=== PATIENT | male | born 1950 | race Caucasian/White ===

== ENCOUNTER 2016-09-30 12:13 | Emergency (ER) | payer OTHER, MEDICAID ==
[~2016-09-30] VITALS: Ht 172.7 cm; Wt 45.4 kg
--- NOTE | 2016-09-30 12:13 | NUR ---
Patient was BIBA and taken to bed 06 via gurney per EMS.
[2016-09-30 12:15] VITALS: BP 106/70
--- NOTE | 2016-09-30 12:31 | NUR ---
Dr. Paz evluating patient at bedside.
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
--- NOTE | 2016-09-30 12:35 | NUR ---
Patient being evaluated by Dr. Paz at bedside.
[2016-09-30] MEDS ORDERED: KETOROLAC 60 MG/2 ML VIAL IM ONE (12:40)
[2016-09-30] MEDS ORDERED: PRED20TA5 PO (12:41)
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
[2016-09-30 13:38] VITALS: BP 107/70
--- NOTE | 2016-09-30 13:39 | NUR ---
Patient discharged with v/s stable. Written and verbal after care instructions given and explained. Patient alert, oriented and verbalized understanding of instructions. Ambulatory with steady gait. All questions addressed prior to discharge. ID band removed. Patient advised to follow up with PMD. Rx of PREDNISONE AND MOTRIN given. Patient educated on indication of medication including possible reaction and side effects. Opportunity to ask questions provided and answered.
== END 2016-09-30 13:39 | disposition home or self-care (01) ==
LOC: MED 12:13
DX: M54.2 Cervicalgia (principal); R06.02 Shortness of breath; J44.9 Chronic obstructive pulmonary disease, unspecified; F17.200 Nicotine dependence, unspecified, uncomplicated; V43.62XA Car passenger injured in collision with other type car in traffic accident, initial encounter; Y93.I9 Activity, other involving external motion; Y92.488 Other paved roadways as the place of occurrence of the external cause; Y99.8 Other external cause status; Z98.61 Coronary angioplasty status
CPT/HCPCS: 96372; 99283; J1885

== ENCOUNTER 2017-05-14 13:28 | Emergency (ER) | payer OTHER, MEDICAID ==
[~2017-05-14] VITALS: Ht 172.7 cm; Wt 41.7 kg
[~2017-05-14 13:28] MED LIST: PRED20TA5 PO
[2017-05-14 13:45] VITALS: BP 101/75
[2017-05-14] MEDS ORDERED: IPRATROPIUM 0.02% 0.5 MG/2.5 ML NEBU INH ONE (13:45)
[2017-05-14] MEDS ORDERED: ALBUTEROL 0.083% 2.5 MG/3 ML NEBU INH ONE ×2 (13:45→14:20)
[2017-05-14] MEDS ORDERED: ALBU0.0912 IH (13:52)
--- NOTE | 2017-05-14 14:00 | NUR ---
PATIENT BIB EMR PRESENTS TO ED WITH C/O SOB/GEN BODY ACHE X 1 WK; HX: HTN,COPD,ASTHMA,OR. TAKING PREDNISONE,ALBUTEROL INHALER LUNG SOUNDS DR.ELLIOTT RITA MADE AWARE,ORDERED RESP. TX. AND CALLED IN. DENIES N/V/D; SKIN IS PINK/WARM/DRY; AAOX4; LUNGS RHONCHI BL; HR EVEN AND REGULAR; PT DENIES ANY FEVER, OR COUGH AT THIS TIME; PATIENT STATES PAIN OF 6/10 AT THIS TIME; VSS; PATIENT POSITIONED FOR COMFORT; HOB ELEVATED; BEDRAILS UP X2; BED DOWN. ER MD MADE AWARE OF PT STATUS.
[2017-05-14] MEDS ORDERED: methylPREDNISolone SS 125 MG in WATER STERILE 2 ML IV ONE (14:20)
[2017-05-14] MEDS ORDERED: AZITHROMYCIN 500 MG in DEXTROSE 5% 250 ML IV ONE (14:20)
[2017-05-14] MEDS ORDERED: cefTRIAXone 1,000 MG in DEXT 5% MINI-BAG PLUS 50 ML IV ONE (14:20)
[2017-05-14] MEDS ORDERED: cefTRIAXone 1,000 MG VIAL ONE (14:48)
[2017-05-14] MEDS ORDERED: AZITHROMYCIN 500 MG INJ VIAL IV ONE (14:48)
[2017-05-14] MEDS ORDERED: methylPREDNISolone SS 125 MG/2 ML VIAL ONE (14:49)
--- NOTE | 2017-05-14 15:00 | NUR ---
PT DEMANDED WITH FOUL LANGUAGE TO HAVE IV PULLED C/O PAIN; IV PULLED BY RN NINA; IV PLACEMENT ATTEMPTED BY RN AFIA BUT PT REFUSED
[2017-05-14 15:03] LABS: BASOPHILS # (AUTO) 0.2 K/uL (0.00-0.22); BASOPHILS % (AUTO) 2.3 % (0.0-2.0); EOSINOPHILS # (AUTO) 0.1 K/uL (0-0.4); EOSINOPHILS % (AUTO) 0.7 % (0.0-4.0); HEMATOCRIT 39.1 % (36-52); HEMOGLOBIN 12.8 g/dL (12.0-18.0); LYMPHOCYTES # (AUTO) 1.5 K/uL (2.0-11.5); LYMPHOCYTES % (AUTO) 16.6 % (20.5-51.1); MEAN CORPUSCULAR HEMOGLOBIN 27 pg (27-31); MEAN CORPUSCULAR HGB CONC 33 g/dL (33-37); MEAN CORPUSCULAR VOLUME 82 fL (80-94); MONOCYTES # (AUTO) 0.6 K/uL (0.8-1.0); MONOCYTES % (AUTO) 7.2 % (1.7-9.3); NEUTROPHILS # (AUTO) 6.4 K/uL (1.8-7.7); NEUTROPHILS % (AUTO) 73.2 % (42.2-75.2); PLATELET COUNT (AUTO) 301 K/uL (140-450); RED BLOOD CELL COUNT(AUTO) 4.78 MIL/uL (4.20-6.10); RED CELL DISTRIBUTION WIDTH 14.4 % (11.6-13.7); WHITE BLOOD COUNT (AUTO) 8.8 K/uL (4.8-10.8)
[2017-05-14 15:12] LABS: ANION GAP 12.2 (8-16); CARBON DIOXIDE 29.1 mmol/L (21-32); CREATININE 0.7 mg/dL (0.7-1.3); POTASSIUM 4.3 mmol/L (3.5-5.1)
[2017-05-14 15:18] LABS: ALBUMIN 3.2 g/dL (3.4-5.0); TOTAL BILIRUBIN 1.3 mg/dL (0.0-1.0)
--- NOTE | 2017-05-14 16:41 | NUR ---
PT DEMANDED IV TO BE PULLED, 175ML ZITHROMAX GIVEN D/T IV PULLED, DR DELVALLE NOTIFIED
--- NOTE | 2017-05-14 16:45 | NUR ---
PT'S NEPHEW CONTACTED CONTACTED BY IDANIA, NO ANSWER, MESSAGE LEFT ON VOICEMAIL BY IDANIA
--- NOTE | 2017-05-14 17:21 | NUR ---
Patient discharged with v/s stable. Written and verbal after care instructions given and explained. Patient alert, oriented and verbalized understanding of instructions. Wheel Chair Assisted with to car. All questions addressed prior to discharge. ID band removed. Patient advised to follow up with PMD. Rx of ROBITUSSIN, PREDNISONE, ZITHROMAX given. Patient educated on indication of medication including possible reaction and side effects. Opportunity to ask questions provided and answered.
[2017-05-14 17:22] VITALS: BP 104/67
== END 2017-05-14 17:21 | disposition home or self-care (01) ==
LOC: MED 13:28
DX: J44.1 Chronic obstructive pulmonary disease with (acute) exacerbation (principal); I10 Essential (primary) hypertension
CPT/HCPCS: 71045; 80053; 82948; 84484; 85025; 87040; 94640; 96365; 96367; 96375; 99285; J0456; J0696; J2930; J7060; J7613; J7644; Q0092

== ENCOUNTER 2018-03-04 18:54 | Emergency (ER) | payer OTHER, MEDICAID ==
[~2018-03-04] VITALS: Ht 165.1 cm; Wt 40.1 kg
[~2018-03-04 18:54] MED LIST changes: +ALBU0.0912 IH
[2018-03-04 19:00] VITALS: BP 134/47
[2018-03-04] MEDS ORDERED: ALBUTEROL SULFATE/IPRATROPIU 3 ML SOL IH ONE (19:05)
[2018-03-04 21:20] VITALS: BP 127/62
== END 2018-03-04 21:20 | disposition home or self-care (01) ==
LOC: MED 18:54
DX: J44.1 Chronic obstructive pulmonary disease with (acute) exacerbation (principal); Z79.899 Other long term (current) drug therapy; Z91.19 Patient's noncompliance with other medical treatment and regimen
CPT/HCPCS: 94640; 94760; 99283; J7620

== ENCOUNTER 2018-04-10 19:52 | Emergency (ER) | payer OTHER, MEDICAID ==
[~2018-04-10] VITALS: Ht 172.7 cm; Wt 43.1 kg
[2018-04-10 20:01] VITALS: BP 131/92
--- NOTE | 2018-04-10 20:05 | NUR ---
PT AMBULATED TO ROOM 2 WITH VSS.
--- NOTE | 2018-04-10 20:15 | NUR ---
PT TO ED WITH C/O L RIB PAIN S/P FALL OFF STOOL AT HOME. PT DENIES LOC. NO OBVIOUS INJURY OR DEFORMITY NOTED TO L RIB AREA. PT PLACED INTO BED, PENDING MD CARPENTER.
--- NOTE | 2018-04-10 20:19 | NUR ---
TO RADIOLOGY VIA MIKE WITH LEAF CONDITIONER HELPER
--- NOTE | 2018-04-10 20:37 | NUR ---
RETURN FROM RADIOLOGY
[2018-04-10] MEDS ORDERED: IBUPROFEN 600 MG TAB PO ONE (20:50)
[2018-04-10] MEDS ORDERED: ALBUTEROL SULFATE/IPRATROPIU 3 ML SOL IH ONE (20:50)
--- NOTE | 2018-04-10 20:59 | NUR ---
RT AT BEDSIDE.
[2018-04-10] MEDS ORDERED: predniSONE 20 MG TAB PO ONE (21:10)
[2018-04-10] MEDS ORDERED: AZITHROMYCIN 250 MG TAB PO ONE (21:10)
[2018-04-10 21:22] VITALS: BP 128/91
--- NOTE | 2018-04-10 21:22 | NUR ---
Patient discharged with v/s stable. Written and verbal after care instructions given and explained. Patient alert, oriented and verbalized understanding of instructions. Ambulatory with steady gait. All questions addressed prior to discharge. ID band removed. Patient advised to follow up with PMD. Rx of IBUPROFEN, PREDNISONE, AZITHROMYCIN, ALBUTEROL given. Patient educated on indication of medication including possible reaction and side effects. Opportunity to ask questions provided and answered.
== END 2018-04-10 21:21 | disposition home or self-care (01) ==
LOC: MED 19:52
DX: S20.20XA Contusion of thorax, unspecified, initial encounter (principal); J45.909 Unspecified asthma, uncomplicated; J44.9 Chronic obstructive pulmonary disease, unspecified; Z79.899 Other long term (current) drug therapy; W08.XXXA Fall from other furniture, initial encounter; Y93.89 Activity, other specified; Y92.89 Other specified places as the place of occurrence of the external cause; Y99.8 Other external cause status
CPT/HCPCS: 71100; 94640; 94760; 99284; J7512; J7620

== ENCOUNTER 2018-05-31 23:54 | Emergency (ER) | payer OTHER, MEDICAID ==
[~2018-05-31] VITALS: Ht 167.6 cm; Wt 63.5 kg
[2018-06-01 00:01] VITALS: BP 125/73
--- NOTE | 2018-06-01 00:08 | NUR ---
TO ER BED 10
--- NOTE | 2018-06-01 00:08 | NUR ---
PT PRESENTS TO ED WITH NAUSEA, SOB, AND FATIGUE X1 HR. AT HOME WHEN FEELING NAUSEA AND WEAKNESS. NO VOMITING. AUDIBLE WHEEZING, COARSE LUNG SOUNDS IN BILAT UPPER LOBES, PRODUCTIVE COUGH. HX ASHTMA. O2SAT 92% RA. TACHY AT 110. A&OX4. POSITIONED IN BED WITH HOB ELEVATED. ER MD AWARE. CONTINUE TO MONITOR.
--- NOTE | 2018-06-01 01:08 | NUR ---
PT PLACED 3L NASAL CANNULA AT THIS TIME, HOB ELEVATED; POSITION FOR COMFORT. WARM BLANKET PROVIDED. SAFETY PRECAUTIONS IN PLACE.
[2018-06-01] MEDS ORDERED: predniSONE 20 MG TAB PO ONE (01:30)
[2018-06-01] MEDS ORDERED: ALBUTEROL SULFATE/IPRATROPIU 3 ML SOL IH ONE (01:30)
[2018-06-01] MEDS ORDERED: ALBUTEROL 0.083% 2.5 MG/3 ML NEBU INH ONE (01:30)
--- NOTE | 2018-06-01 01:39 | NUR ---
RT AT BEDSIDE FOR BREATHING TREATMENT.
--- NOTE | 2018-06-01 01:41 | NUR ---
[facility] THERAPY AND RESPIRATORY DRUGS GIVEN ORDERED
--- NOTE | 2018-06-01 03:43 | NUR ---
PT POSITIONED FOR COMFORT. VSS. GSC 15.
--- NOTE | 2018-06-01 04:15 | NUR ---
SPOKE TO WILMER JIMÉNEZ; PT HAS BEEN DISCHARGED BY , STATES HE WILL SEND HIS SON TO [employer] PRE ARRANGEMENT COUNSELOR THE PATIENT.
--- NOTE | 2018-06-01 04:19 | NUR ---
Patient discharged with v/s stable. Written and verbal after care instructions given and explained. Patient acting appropriatly, patient states he feels better and is ready to go home. Patient states 0/10 pain at this time. Patient alert, oriented and verbalized understanding of instructions. Ambulatory with steady gait using walker. All questions addressed prior to discharge. ID band removed. Patient advised to follow up with PMD. Rx of Prednisone, and Albuterol given. Patient educated on indication of medication including possible reaction and side effects. Opportunity to ask questions provided and answered.
[2018-06-01 04:59] VITALS: BP 115/68
== END 2018-06-01 04:19 | disposition home or self-care (01) ==
LOC: MED 23:54
DX: J45.901 Unspecified asthma with (acute) exacerbation (principal); Z79.899 Other long term (current) drug therapy
CPT/HCPCS: 94640; 99283; J7512; J7613; J7620

== ENCOUNTER 2018-09-16 22:58 | Inpatient (IN) | payer OTHER, MEDICAID ==
[~2018-09-16] VITALS: Ht 167.6 cm; Wt 36.3 kg
[2018-09-16 23:05] VITALS: BP 112/64
--- NOTE | 2018-09-16 23:08 | NUR ---
TO LOBBY A/W BED VIA WHEELCHAIR
--- NOTE | 2018-09-17 03:15 | NUR ---
PT WITH AMBULATED WALKER TO ER BED 05
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
--- NOTE | 2018-09-17 03:50 | NUR ---
DR. GUERRERO EVALUATING AT BEDSIDE.
[2018-09-17] MEDS ORDERED: ALBUTEROL 0.083% 2.5 MG/3 ML NEBU INH ONE (04:00)
--- NOTE | 2018-09-17 04:25 | NUR ---
PRIMARY RN ATTEMPTED IV X 3 UNSUCCESSFULLY.
--- NOTE | 2018-09-17 04:30 | NUR ---
RT AT BEDSDIDE. BREATHING TX IN PROGRESS.
--- NOTE | 2018-09-17 04:35 | NUR ---
LAB AT BEDSIDE.
--- NOTE | 2018-09-17 04:42 | NUR ---
LAB UNSUCCESSFUL AT DRAWING BLOOD.
--- NOTE | 2018-09-17 05:16 | NUR ---
RT COLLECTING ABG AT BEDSIDE.
--- NOTE | 2018-09-17 05:17 | NUR ---
CHARGE NURSE ATTEMPTING TO ESTABLISH IV AT BEDSIDE.
--- NOTE | 2018-09-17 05:30 | NUR ---
2 ATTEMPTS FOR IV INSERTION AND UNABLE TO OBTAIN ACCESS AT THIS TIME. PT REFUSING TO HAVE ANOTHER ATTEMPT FOR BLOOD DRAW OR AN IV. DR. GUERRERO MADE AWARE.
--- NOTE | 2018-09-17 05:42 | NUR ---
DR. GUERRERO PERFORMING US GUIDED ARTERIAL BLOOD DRAW AT BEDSIDE WITH CHARGE NURSE.
--- NOTE | 2018-09-17 06:00 | NUR ---
PT STATES HE CAN PROVIDE URINE SAMPLE VIA URINAL. URINAL PROVIDED. PT REQUESTED PRIVACY.
--- NOTE | 2018-09-17 07:10 | NUR ---
RECEIVED REPORT FROM TAYLOR LONG
--- NOTE | 2018-09-17 07:25 | NUR ---
DR CURRY AT BEDSIDE INSERTING IV AND DRAWING LABS AT THIS TIME.
--- NOTE | 2018-09-17 08:12 | NUR ---
IV INFILTRATED PER CT [facility]. CT TO BE DONE WITHOUT CONTRAST PER DR ROBERTSON
[2018-09-17 08:14] LABS: BASOPHILS % (AUTO) 0.2 % (0.0-2.0); EOSINOPHILS # (AUTO) 0.1 K/uL (0-0.4); HEMATOCRIT 42.3 % (36-52); HEMOGLOBIN 13.7 g/dL (12.0-18.0); LYMPHOCYTES # (AUTO) 1.4 K/uL (2.0-11.5); LYMPHOCYTES % (AUTO) 14.3 % (20.5-51.1); MEAN CORPUSCULAR HEMOGLOBIN 27 pg (27-31); MEAN CORPUSCULAR HGB CONC 32 g/dL (33-37); MEAN CORPUSCULAR VOLUME 82.9 fL (80-94); MONOCYTES # (AUTO) 0.7 K/uL (0.8-1.0); MONOCYTES % (AUTO) 7.3 % (1.7-9.3); NEUTROPHILS # (AUTO) 7.4 K/uL (1.8-7.7); NEUTROPHILS % (AUTO) 77.2 % (42.2-75.2); PLATELET COUNT (AUTO) 254 K/uL (140-450); RED BLOOD CELL COUNT(AUTO) 5.11 MIL/uL (4.20-6.10); RED CELL DISTRIBUTION WIDTH 14.9 % (11.6-13.7); WHITE BLOOD COUNT (AUTO) 9.6 K/uL (4.8-10.8)
[2018-09-17 08:26] LABS: ANION GAP 18.5 (8-16); CARBON DIOXIDE 30.6 mmol/L (21-32); CREATININE 0.9 mg/dL (0.7-1.3); POTASSIUM 3.1 mmol/L (3.5-5.1); PROTHROMBIN TIME 9.8 secs (10.8-13.4)
[2018-09-17 08:31] LABS: ALBUMIN 3.3 g/dL (3.4-5.0); TOTAL BILIRUBIN 1.1 mg/dL (0.0-1.0)
--- NOTE | 2018-09-17 08:32 | NUR ---
PT UNABLE TO URINATE AT THIS TIME AND IS REFUSING STRAIGHT CATH. ER MD NOTIFIED. PT ASKING FOR WATER, PER ER MD PT CANNOT HAVE ANYTHING TO EAT OR DRINK AT THIS TIME.
[2018-09-17] MEDS ORDERED: methylPREDNISolone SS 40 MG in WATER STERILE 1 ML IV ONE (09:40)
[2018-09-17] MEDS ORDERED: ONDANSETRON 4 MG/2 ML VIAL IVP PRN (09:45)
[2018-09-17] MEDS ORDERED: KCL 20 MEQ/WATER INJ PREMIX 100 ML IV ONE (09:45)
[2018-09-17] MEDS ORDERED: ACETAMINOPHEN 325 MG TAB PO PRN (09:45)
[2018-09-17] MEDS ORDERED: ALBUTEROL SULFATE/IPRATROPIU 3 ML SOL IH PRN (09:50)
[2018-09-17] MEDS ORDERED: POTASSIUM CHLORIDE 40 MEQ, LIDOCAINE MPF 1% - 5 mL VIAL 25 MG in NACL 0.9% 250 ML IV ONE (10:10)
--- NOTE | 2018-09-17 10:35 | NUR ---
Patient will be admitted to care of [facility]. Admited to TELE VIA GURKENNETH W/ VSS. Will go to room 110B. Belongings list completed. Report to CHAD VAZQUEZ.
[2018-09-17 10:40] VITALS: BP 109/69
--- NOTE | 2018-09-17 10:50 | NUR ---
RECEIVED REPORT FROM ED RN. PT IN STABLE CONDITION. DENIES PAIN AND DISCOMFORT. RT UA SKIN TEAR, ONLINE ADVERTISING DIRECTOR. WILL COVER WITH DRESSING. DIMINISHED BREATH SOUNDS. RRR. ON TELE. CONTINENT. USES WALKER AT HOME. GEN WEAKNESS. WILL PLACE ON FALL PRECAUTIONS. ALL OTHER SAFETY PRECAUTIONS IN PLACE, WILL CONTINUE TO MONITOR.
[2018-09-17 11:00] VITALS: BP 111/65
--- NOTE | 2018-09-17 11:01 | NUR ---
PATIENT REFUSED TO TAKE OFF PANTS FOR SKIN CHECK. LT FOREARM SKIN TEAR NOTED. WILL COVER WITH TEGADERM AND TAKE PHOTO AND MEASUREMENTS. Addendum: 09/17/18 at 1505 by Susan Singh Meng, RN RIGHT UPPER ARM SKIN TEAR, NOT LT FOREARM.
--- NOTE | 2018-09-17 11:20 | NUR ---
PATIENT PULLED OUT IV SITE, STATES BURNING WITH THE K RIDER INFUSING. WILL START NEW IV.
[2018-09-17 11:42] LABS: FREE T4 (FREE THYROXINE) 1.54 ng/dL (0.76-1.46); MAGNESIUM 1.4 mg/dL (1.8-2.4); PHOSPHORUS 3.6 mg/dL (2.5-4.9); THYROID STIMULATING HORMONE 3.4 uIU/mL (0.34-3.74)
--- NOTE | 2018-09-17 11:43 | NUR ---
NOTIFIED DR. MOSER THAT PT IS REFUSING K RIDER ORDERED FROM ED, STATES BURNING. TRIED INFUSING WITH NS @ 100 AND SWITCHING TO NEW IV SITE BUT PT STILL REFUSING.
[2018-09-17] MEDS ORDERED: MAG SULF 2000 MG/WATER PREMIX 100 ML IV ONE (11:55)
[2018-09-17 12:00] VITALS: BP 109/69
[2018-09-17] MEDS ORDERED: MAG SULF 2000 MG/WATER PREMIX 50 ML IV SCH (12:15)
[2018-09-17] MEDS ORDERED: POTASSIUM CHLORIDE 10 MEQ TABER PO SCH (12:15)
[2018-09-17] MEDS: NACL 0.9% 1,000 ML IV SCH (12:41)
--- NOTE | 2018-09-17 12:47 | NUR ---
ORAL POTASSIUM ADMINISTERED. K RIDER STOPPED- LESS THAN 10 ML GIVEN. SET UP LUNCH TRAY PT IS NOW EATING IN BED.
[2018-09-17] MEDS ORDERED: LEVOFLOXACIN 500 MG/D5W PREMIX 100 ML IV SCH (13:00)
[2018-09-17] MEDS: HYDROcodone/APAP 7.5/325 MG 1 TAB PO PRN ×2 (13:48→20:19)
--- NOTE | 2018-09-17 14:45 | NUR ---
CALLED BROTHER WILMER PER PATIENT REQUEST. PT WANTS BROTHER TO COME SEE HIM IN HOSPITAL. BROTHER WILMER VERBALIZED UNDERSTANDING.
[2018-09-17] MEDS: ALBUTEROL SULFATE/IPRATROPIU 3 ML SOL IH SCH ×2 (14:52→19:48)
[2018-09-17 16:00] VITALS: BP 105/75
--- NOTE | 2018-09-17 18:36 | NUR ---
SCATTERED WHEEZING IN RIGHT LUNG. LEFT LUNG CTA/DIMINISHED. SIGNIFICANT IMPROVEMENT FROM PRIOR ASSESSMENT.
--- NOTE | 2018-09-17 19:16 | NUR ---
ENDORSED POC TO CAP PARTS CUTTER RN. PT IN STABLE CONDITION.
--- NOTE | 2018-09-17 19:17 | NUR ---
RECEIVED BEDSIDE REPORT FROM DAY SHIFT NURSE CHAD RN, PT STABLE, NO DISTRESS NOTED, IV TO R FA 22G PATENT INTACT, INFUSING NS @ 20ML/HR, INFUSING WELL, PT IS CURRENTLY NOT WEARING HIS O2, BUT SATURATION IS 97%, NO SOB, PT RESTING ON BED, STATED HAVING NO PAIN AT THIS MOMENT, INITIAL ASSESSMENT DONE, ALL SAFETY PRECAUTION MET, CALL LIGHT WITHIN REACH, WILL CONTINUE TO MONITOR.
[2018-09-17 19:39] LABS: APPEARANCE,URINE CLEAR (CLEAR); BILIRUBIN,URINE 2+ (NEGATIVE); BLOOD, URINE NEGATIVE (NEGATIVE); COLOR,URINE YELLOW (YELLOW); LEUKOCYTE ESTERASE ,URINE NEGATIVE (NEGATIVE); NITRITE, URINE NEGATIVE (NEGATIVE); UGLUCOSE 1+ (NEGATIVE)
[2018-09-17 19:44] LABS: BARBITURATE, URINE NEG. ng/ml (NEG <=200); BENZODIAZEPINE, URINE NEG. ng/mL (NEG <=200); CANNABINOID, URINE NEG. ng/mL (NEG <=50); COCAINE, URINE NEG. ng/mL (NEG <=300); OPIATE, URINE POS. ng/mL (NEG <=2000); PHENCYCLIDINE SCREEN,URINE NEG. ng/mL (NEG <=25)
[2018-09-17 20:00] VITALS: BP 95/65
[2018-09-17] MEDS: DOCUSATE SODIUM 100 MG GELCAP PO SCH (20:28)
--- NOTE | 2018-09-17 20:28 | NUR ---
DUE MEDICATION ADMINISTERED, PT TOLERATED WELL, PT STATED HAVING PAIN 6/10 TO THE NECK AND THROAT AREA, PAIN MEDICATION PER DR ORDER ADMINISTERED, PT TOLERATED WELL, PT REFUSED COLACE, STATED IT MAKES HIM HAVE DIARRHEA AND HE ALREADY DID A BM YESTERDAY. PT RESTING, NO DISTRESS NOTED, CALL LIGHT WITHIN REACH, WILL CONTINUE TO MONITOR.
[2018-09-17] MEDS ORDERED: BUDESONIDE 0.5 MG/2 ML NEBU INH SCH (21:00)
[2018-09-18] VITALS: BP 112/64
--- NOTE | 2018-09-18 00:01 | NUR ---
CHECKED ON PT, PT AWAKE, RESTING, NO DISTRESS NOTED, V/S TAKEN, WNL, CALL LIGHT WITHIN REACH, WILL CONTINUE TO MONTIOR.
--- NOTE | 2018-09-18 02:24 | NUR ---
PT RESTING, NO DISTRESS NOTED, CALL LIGHT WITHIN REACH, WILL CONTINUE TO MONITOR.
[2018-09-18 04:00] VITALS: BP 109/69
--- NOTE | 2018-09-18 04:00 | NUR ---
PT RESTING, V/S TAKEN, WNL, CALL LIGHT WITHIN REACH, WILL CONTINUE TO MONITOR.
[2018-09-18] MEDS: HYDROcodone/APAP 7.5/325 MG 1 TAB PO PRN ×2 (06:42→21:49)
--- NOTE | 2018-09-18 06:42 | NUR ---
PT C/O PAIN, PAIN MEDICATION ADMINISTERED, PT TOLERATED WELL, NO DISTRESS NOTED, CALL LIGHT WITHIN REACH, WILL CONTINUE TO MONITOR.
--- NOTE | 2018-09-18 07:20 | NUR ---
RECEIVED BEDSIDE REPORT FROM STONE LAYER NURSE. PT IS AWAKE AND ALERT, NO S/S OF ANY ACUTE DISTRESS, NO SOB NOTED. PT IS ON ROOM AIR. SKIN TEAR NOTED ON THE RUE, COVERED BY CLEAR FILM DRESSING. OTHERWISE SKIN IS INTACT. IV SITE NOTED ON THE RFA 22 G, INFUSING NS 20 ML/HR. CALL LIGHT IS WITHIN REACH. WILL CONTINUE TO MONITOR.
--- NOTE | 2018-09-18 07:24 | NUR ---
ENDORSED PT TO DAY SHIFT NURSE ROSA VAZQUEZ PT IN STABLE CONDITION, NO DISTRESS NOTED, CALL LIGHT WITHIN REACH.
[2018-09-18 08:00] VITALS: BP 129/65
--- NOTE | 2018-09-18 08:08 | NUR ---
AWAKE AND ALERT NO SOB NOTED AT THIS TIME PATIENT WITH BREAKFAST TRAY RESOURCE TEACHER TO ATTEMPT [facility] THERAPY AND RESPIRATORY DRUG AT LATER TIME
[2018-09-18] MEDS: ALBUTEROL SULFATE/IPRATROPIU 3 ML SOL IH SCH ×3 (08:44→19:42)
[2018-09-18] MEDS: BUDESONIDE 0.5 MG/2 ML NEBU INH SCH ×3 (08:44→19:43)
--- NOTE | 2018-09-18 09:16 | NUR ---
PATIENT HAS BEEN SCREENED AND CATEGORIZED HIGH NUTRITION RISK. PATIENT WILL BE SEEN WITHIN 1-2 DAYS OF ADMISSION. 09/18/[address]
[2018-09-18] MEDS: predniSONE 20 MG TAB PO SCH (09:17)
[2018-09-18] MEDS: DOCUSATE SODIUM 100 MG GELCAP PO SCH ×2 (09:17→21:00)
--- NOTE | 2018-09-18 09:35 | NUR ---
AM MEDS ADMINISTERED BY STUDENT NURSE, WITH SUPERVISION BY RN. PT TOLERATED WELL.
[2018-09-18] MEDS ORDERED: KETOROLAC 15 MG/ML VIAL IVP SCH (09:45)
[2018-09-18] MEDS: AZITHROMYCIN 250 MG in DEXTROSE 5% 250 ML IV SCH (11:24)
[2018-09-18] MEDS: NACL 0.9% 1,000 ML IV SCH (11:55)
[2018-09-18 12:00] VITALS: BP 123/61
[2018-09-18] MEDS ORDERED: LEVOFLOXACIN 250 MG/D5 PREMIX 50 ML IV SCH (13:00)
--- NOTE | 2018-09-18 13:38 | NUR ---
PT IS ASKING IF HE CAN GO HOME TODAY. PT WAS EXPLAINED THAT THERE IS NO DISCHARGE ORDER FOR HIM YET, AND THAT HE NEEDS TO FINISH THE COURSE OF HIS TREATMENT. PT VERNALIZED UNDERSTANDING.
--- NOTE | 2018-09-18 13:41 | NUR ---
09/18/18 RD INITIAL ASSESSMENT COMPLETED PLEASE REFER TO NUTRITION ASSESSMENT UNDER CARE ACTIVITY FOR ESTIMATED NUTRITIONAL NEEDS. RD RECOMMENDATIONS: 1. RECOMMEND CONTINUE MECANICAL SOFT DIET WITH ENSURE ENLIVE FOR WEIGHT GAIN. 2. RD WILL F/U 2-3 DAYS; HIGH RISK. LUMA HAYNES, RD
--- NOTE | 2018-09-18 13:53 | NUR ---
TOLERATED INCENTIVE S[IROMETRY WELL WITHOUT INCIDENT ENCOURAGED PATIENT WITH ACKNOWLEDGEMENT TO USE INCENTIVE SPIROMETRY EVERY 1-2 HOURS WHILE AWAKE
[2018-09-18 14:00] LABS: BASOPHILS % (AUTO) 0.1 % (0.0-2.0); HEMATOCRIT 36.1 % (36-52); HEMOGLOBIN 11.6 g/dL (12.0-18.0); LYMPHOCYTES # (AUTO) 0.3 K/uL (2.0-11.5); LYMPHOCYTES % (AUTO) 3.3 % (20.5-51.1); MEAN CORPUSCULAR HEMOGLOBIN 27 pg (27-31); MEAN CORPUSCULAR HGB CONC 32 g/dL (33-37); MEAN CORPUSCULAR VOLUME 82.5 fL (80-94); MONOCYTES # (AUTO) 0.2 K/uL (0.8-1.0); MONOCYTES % (AUTO) 2.2 % (1.7-9.3); NEUTROPHILS % (AUTO) 94.4 % (42.2-75.2); PLATELET COUNT (AUTO) 263 K/uL (140-450); RED BLOOD CELL COUNT(AUTO) 4.38 MIL/uL (4.20-6.10); RED CELL DISTRIBUTION WIDTH 14.7 % (11.6-13.7); WHITE BLOOD COUNT (AUTO) 8.5 K/uL (4.8-10.8)
[2018-09-18 14:18] LABS: ANION GAP 12.7 (8-16); CARBON DIOXIDE 31.9 mmol/L (21-32); CREATININE 1.2 mg/dL (0.7-1.3); POTASSIUM 4.6 mmol/L (3.5-5.1)
[2018-09-18 14:19] LABS: MAGNESIUM 1.7 mg/dL (1.8-2.4); PHOSPHORUS 2.1 mg/dL (2.5-4.9)
[2018-09-18 14:40] LABS: CHOL/HDL RATIO 3.7 (1-4.5)
[2018-09-18 16:00] VITALS: BP 109/68
--- NOTE | 2018-09-18 19:10 | NUR ---
PT ENDORSED TO CRYPTOGRAPHY TEACHER IN STABLE CONDITION.
--- NOTE | 2018-09-18 19:11 | NUR ---
RECEIVED BEDSIDE REPORT FROM DAY SHIFT NURSE ROSA RN, PT STABLE, NO DISTRESS NOTED, IV TO R FA 22G PATENT INTACT, INFUSING NS @ 20ML/HR, INFUSING WELL, PT ON ROOM AIR, NO SOB NOTED, INITIAL ASSESSMENT DONE, ALL SAFETY PRECAUTION MET, CLAL LIGHT WITHIN REACH, WILL CONTINUE TO MONITOR.
--- NOTE | 2018-09-18 21:49 | NUR ---
PT COMPLAINT OF PAIN 08/15, PAIN MEDICATION NORCO ADMINISTERED, PT TOLERATED WELL, NO DISTRESS NOTED, CALL LIGHT WITHIN REACH, WILL CONTINUE TO MONITOR.
[2018-09-18] MEDS ORDERED: MELATONIN 3 MG TAB PO PRN (22:10)
--- NOTE | 2018-09-18 22:49 | NUR ---
PT C/O UNABLE TO SLEEP REQUESTING SOMETHING FOR SLEEPING, MELATONIN PER DR ORDER ADMINISTERED, PT TOLERATED WELL, NO DISTRESS NOTED, CALL LIGHT WITHIN REACH, WILL CONTINUE TO MONITOR.
--- NOTE | 2018-09-18 23:55 | NUR ---
CHECKED ON PT, PT SLEEPING, NO DISTRESS NOTED, V/S TAKEN, WNL,CALL LIGHT WITHIN REACH, WILL CONTINUE TO MONITOR.
[2018-09-19] VITALS: BP 103/69
--- NOTE | 2018-09-19 02:21 | NUR ---
PT SLEEPING, NO DISTRESS NOTED, CALL LIGHT WITHIN REACH, WILL CONTINUE TO MONITOR.
[2018-09-19] MEDS: HYDROcodone/APAP 7.5/325 MG 1 TAB PO PRN (04:37)
--- NOTE | 2018-09-19 04:37 | NUR ---
PT C/O PAIN, PAIN MEDICATION ADMINISTERED, PT TOLERATED WELL, NO DISTRESS NOTED CALL LIGHT WITHIN REACH, WILL CONTINUE TO MONITOR.
--- NOTE | 2018-09-19 06:10 | NUR ---
PT REFUSED BLOOD DRAW.
[2018-09-19] MEDS: BUDESONIDE 0.5 MG/2 ML NEBU INH SCH (07:04)
[2018-09-19] MEDS: ALBUTEROL SULFATE/IPRATROPIU 3 ML SOL IH SCH ×2 (07:04→13:26)
--- NOTE | 2018-09-19 07:21 | NUR ---
RECEIVED BEDSIDE REPORT FROM WAX PATTERN REPAIRER RN. PT IS AAOX2 IN STABLE CONDITION. NO DISTRESS NOTED AT THIS TIME. IV TO R FA 22G PATENT AND INTACT, INFUSING NS @ 20ML/HR, INFUSING WELL. PT ON ROOM AIR, NO SOB NOTED. INITIAL ASSESSMENT DONE, ALL SAFETY PRECAUTIONS MET. DISCUSSED POC WITH PT. PT CONFUSED BUT VERBALIZED UNDERSTANDING. WILL REINFORCE TEACHING NEEDED. CALL LIGHT WITHIN REACH, BED IN LOW POSITION, BED ALARM ON. WILL MONITOR PT CLOSELY.
--- NOTE | 2018-09-19 07:35 | NUR ---
ENDORSED PT TO DAY SHIFT RN, PT STABLE, NO DISTRESS NOTED, CALL LIGHT WITHIN REACH.
[2018-09-19 08:00] VITALS: BP 119/81
--- NOTE | 2018-09-19 09:24 | NUR ---
ADMINISTERED MORNING MEDS TO PT. PT TOLERATED THEM WELL. WILL CONTINUE TO ROUND FREQUENTLY ON PT. BED IN LOW POSITION, CALL LIGHT WITHIN REACH.
[2018-09-19] MEDS: predniSONE 20 MG TAB PO SCH (09:56)
[2018-09-19] MEDS: DOCUSATE SODIUM 100 MG GELCAP PO SCH (09:56)
[2018-09-19] MEDS ORDERED: AZIT250T3 PO (09:57)
[2018-09-19] MEDS ORDERED: PUL.5N INH (09:57)
--- NOTE | 2018-09-19 11:34 | NUR ---
PT RESTING IN BED WATCHING TV. NO COMPLAINTS OF PAIN AT THIS TIME. WILL CONTINUE TO ROUND FREUQNELTY ON PT.
[2018-09-19] MEDS: AZITHROMYCIN 250 MG in DEXTROSE 5% 250 ML IV SCH (11:39)
[2018-09-19] MEDS: NACL 0.9% 1,000 ML IV SCH (11:55)
--- NOTE | 2018-09-19 14:01 | NUR ---
Hand Tube Winder Note: I faxed inquiry to [facility] per 's request. Per Nilda from [facility] , patient has an account open with [facility] unable to accept referral, I notified of this. I also received a call from Analisa from [facility] she confirmed prior to hospital admission patient was receiving services from their company for nursing and physical therapy. She provided me with their fax number . She stated they will continue to provide services for patient post discharge. I faxed patient's medical information to [facility].
--- NOTE | 2018-09-19 15:59 | NUR ---
PT SLEEPING IN BED. NO SIGNS OF PAIN OR DISTRESS NOTED. WILL CONTINUE TO ROUND FREQUENTLY ON PT. BED IN LOW POSITION, CALL LIGHT WITHIN REACH.
[2018-09-19 16:00] VITALS: BP 95/67
--- NOTE | 2018-09-19 17:25 | NUR ---
PT DISCHARGED HOME WITH HOME HEALTH PT. PT SIGNED AND VERBALIZED UNDERSTANDING OF TEACHING AND DISCHARGE PAPERWORK. ALL PERSONAL BELONGINGS WERE TAKEN WITH PT. IV WAS REMOVED WITH TIP INTACT. VITAL SIGNS STABLE. WRIST BANDS REMOVED AND PLACED IN SHRED BIN. PT WAS TAKEN HOME IN STABLE CONDITION ACCOMPANIED BY HIS ROOMMATE
== END 2018-09-19 17:25 | disposition home health service (06) | DRG 190 ==
LOC: MED 22:58 → MTU 09-17 09:45
PROVIDERS: ADMIT General Practice; ATTEND General Practice
DX: J44.1 Chronic obstructive pulmonary disease with (acute) exacerbation (principal); E43 Unspecified severe protein-calorie malnutrition; Z68.1 Body mass index [BMI] 19.9 or less, adult; J44.0 Chronic obstructive pulmonary disease with (acute) lower respiratory infection; J20.9 Acute bronchitis, unspecified; E87.6 Hypokalemia; I50.9 Heart failure, unspecified; M81.0 Age-related osteoporosis without current pathological fracture; Z72.0 Tobacco use; Z71.6 Tobacco abuse counseling; Z79.899 Other long term (current) drug therapy
CPT/HCPCS: 36415; 36600; 71045; 80048; 80053; 80305; 81003; 82150; 82803; 83036; 83605; 83690; 83735; 83880; 84100; 84439; 84443; 84484; 85025; 85610; 87040; 87081; 87086; 93005; 94640; 97116; 97161-GP; J0456; J1644; J1885; J1956; J2920; J3475; J3480; J7030; J7060; J7512; J7613; J7620; J7626; Q0092

== ENCOUNTER 2018-12-08 21:01 | Inpatient (IN) | payer OTHER, MEDICAID ==
[~2018-12-08] VITALS: Ht 157.5 cm; Wt 36.3 kg
[2018-12-08 21:01] VITALS: BP 117/69
[~2018-12-08 21:01] MED LIST changes: +AZIT250T3 PO; +PUL.5N INH
[2018-12-08] MEDS ORDERED: ALBUTEROL SULFATE/IPRATROPIU 3 ML SOL IH ONE ×3 (21:20→22:10)
[2018-12-08] MEDS ORDERED: ALBUTEROL 0.083% 2.5 MG/3 ML NEBU INH ONE ×2 (22:10→22:12)
[2018-12-09 00:23] VITALS: BP 115/72
[2018-12-09 00:29] LABS: BASOPHILS % (AUTO) 0.2 % (0.0-2.0); EOSINOPHILS % (AUTO) 0.3 % (0.0-4.0); HEMATOCRIT 40.6 % (36-52); HEMOGLOBIN 12.7 g/dL (12.0-18.0); LYMPHOCYTES # (AUTO) 0.4 K/uL (2.0-11.5); MEAN CORPUSCULAR HEMOGLOBIN 25 pg (27-31); MEAN CORPUSCULAR HGB CONC 31 g/dL (33-37); MEAN CORPUSCULAR VOLUME 78.2 fL (80-94); MONOCYTES # (AUTO) 0.5 K/uL (0.8-1.0); MONOCYTES % (AUTO) 4.5 % (1.7-9.3); NEUTROPHILS % (AUTO) 91.6 % (42.2-75.2); PLATELET COUNT (AUTO) 302 K/uL (140-450); RED BLOOD CELL COUNT(AUTO) 5.19 MIL/uL (4.20-6.10); RED CELL DISTRIBUTION WIDTH 15.1 % (11.6-13.7)
[2018-12-09 00:40] LABS: ANION GAP 12.3 (8-16); CREATININE 1.3 mg/dL (0.7-1.3); POTASSIUM 3.3 mmol/L (3.5-5.1)
[2018-12-09 00:55] LABS: ALBUMIN 3.7 g/dL (3.4-5.0); TOTAL BILIRUBIN 1.4 mg/dL (0.0-1.0)
[2018-12-09 01:10] LABS: LYMPHOCYTES % (AUTO) 3.4 % (20.5-51.1)
[2018-12-09] MEDS ORDERED: ACETAMINOPHEN 325 MG TAB PO PRN (02:00)
[2018-12-09] MEDS ORDERED: DOCUSATE SODIUM 100 MG GELCAP PO PRN (02:00)
[2018-12-09] MEDS ORDERED: LEVOFLOXACIN 750 MG/D5W PREMIX 150 ML IV ONE (02:10)
[2018-12-09] MEDS ORDERED: methylPREDNISolone SS 125 MG/2 ML VIAL IVP ONE (02:10)
[2018-12-09] MEDS ORDERED: HEPARIN PER PHARMACY MC PRN (02:15)
[2018-12-09] MEDS ORDERED: hePARIN / DEXT 5% PREMIX 250 ML IV SCH ×2 (02:15→03:00)
[2018-12-09] MEDS ORDERED: ALBUTEROL SULFATE/IPRATROPIU 3 ML SOL IH PRN (02:15)
[2018-12-09] MEDS ORDERED: NITROGLYCERIN 0.4 MG TAB SL PRN (02:15)
[2018-12-09 02:29] LABS: CHOL/HDL RATIO 3.2 (1-4.5); MAGNESIUM 1.8 mg/dL (1.8-2.4); PHOSPHORUS 4.6 mg/dL (2.5-4.9); THYROID STIMULATING HORMONE 2.73 uIU/mL (0.34-3.74)
[2018-12-09 02:30] VITALS: BP 118/83
[2018-12-09 02:35] LABS: PROTHROMBIN TIME 10.4 secs (10.8-13.4)
[2018-12-09] MEDS ORDERED: POTASSIUM CHLORIDE 10 MEQ TABER PO SCH ×2 (03:00→09:15)
[2018-12-09] MEDS: NACL 0.9% 1,000 ML IV SCH (03:00)
[2018-12-09] MEDS ORDERED: SPIMDI INH (03:30)
[2018-12-09] MEDS ORDERED: TRAZ-343 PO (03:32)
[2018-12-09 03:38] LABS: APPEARANCE,URINE CLEAR (CLEAR); BILIRUBIN,URINE NEGATIVE (NEGATIVE); BLOOD, URINE NEGATIVE (NEGATIVE); COLOR,URINE YELLOW (YELLOW); LEUKOCYTE ESTERASE ,URINE NEGATIVE (NEGATIVE); NITRITE, URINE NEGATIVE (NEGATIVE); UGLUCOSE NEGATIVE (NEGATIVE)
[2018-12-09 04:11] LABS: BARBITURATE, URINE NEG. ng/ml (NEG <=200); BENZODIAZEPINE, URINE NEG. ng/mL (NEG <=200); CANNABINOID, URINE NEG. ng/mL (NEG <=50); COCAINE, URINE NEG. ng/mL (NEG <=300); OPIATE, URINE POS. ng/mL (NEG <=2000); PHENCYCLIDINE SCREEN,URINE NEG. ng/mL (NEG <=25)
[2018-12-09] MEDS: methylPREDNISolone SS 125 MG/2 ML VIAL IVP SCH ×3 (04:29→21:21)
[2018-12-09] MEDS ORDERED: PIPERACILLIN/TAZOBACTAM 2.25 GM VIAL IV ONE (06:26)
[2018-12-09] MEDS: PIPERACILLIN/TAZOBACTAM 2.25 GM in DEXTROSE 5% 50 ML IV SCH ×3 (06:35→21:25)
[2018-12-09] MEDS: ALBUTEROL SULFATE/IPRATROPIU 3 ML SOL IH SCH ×3 (07:08→19:37)
[2018-12-09] MEDS: BUDESONIDE 0.5 MG/2 ML NEBU INH SCH ×2 (07:08→19:37)
[2018-12-09 08:00] VITALS: BP 108/69
[2018-12-09] MEDS: LISINOPRIL 10 MG TAB PO SCH (09:00)
[2018-12-09] MEDS: FUROSEMIDE 40 MG/4 ML VIAL IVP SCH (09:00)
[2018-12-09] MEDS: ASPIRIN 81 MG TAB.CHEW PO SCH (09:39)
[2018-12-09] MEDS: HYDROcodone/APAP 5/325 MG 1 TAB TAB PO PRN ×2 (09:39→15:40)
[2018-12-09] MEDS ORDERED: POTASSIUM CHLORIDE 20% 40 MEQ/15 ML UDC PO SCH (10:00)
[2018-12-09 12:00] VITALS: BP 95/67
[2018-12-09 16:00] VITALS: BP 93/66
[2018-12-09 20:00] VITALS: BP 106/74
[2018-12-09] MEDS: traZODone 50 MG TAB PO SCH (21:19)
[2018-12-09] MEDS ORDERED: ZOLPIDEM 5 MG TAB PO ONE (23:20)
[2018-12-10] VITALS: BP 110/78
[2018-12-10] MEDS: NACL 0.9% 1,000 ML IV SCH (01:57)
[2018-12-10] MEDS ORDERED: SIMETHICONE 80 MG TAB.CHEW PO ONE (03:00)
[2018-12-10 04:00] VITALS: BP 131/86
[2018-12-10] MEDS: methylPREDNISolone SS 125 MG/2 ML VIAL IVP SCH (05:00)
[2018-12-10] MEDS: PIPERACILLIN/TAZOBACTAM 2.25 GM in DEXTROSE 5% 50 ML IV SCH ×3 (05:40→21:07)
[2018-12-10] MEDS: methylPREDNISolone SS 40 MG/ML VIAL IVP SCH ×3 (05:40→21:07)
[2018-12-10] MEDS: ALBUTEROL SULFATE/IPRATROPIU 3 ML SOL IH SCH ×3 (07:12→19:00)
[2018-12-10] MEDS: BUDESONIDE 0.5 MG/2 ML NEBU INH SCH ×2 (07:12→19:00)
[2018-12-10 07:31] LABS: BASOPHILS % (AUTO) 0.1 % (0.0-2.0); HEMATOCRIT 40.8 % (36-52); HEMOGLOBIN 12.9 g/dL (12.0-18.0); LYMPHOCYTES # (AUTO) 0.3 K/uL (2.0-11.5); LYMPHOCYTES % (AUTO) 3.3 % (20.5-51.1); MEAN CORPUSCULAR HEMOGLOBIN 25 pg (27-31); MEAN CORPUSCULAR HGB CONC 32 g/dL (33-37); MEAN CORPUSCULAR VOLUME 79.5 fL (80-94); MONOCYTES # (AUTO) 0.2 K/uL (0.8-1.0); MONOCYTES % (AUTO) 1.8 % (1.7-9.3); NEUTROPHILS # (AUTO) 8.6 K/uL (1.8-7.7); NEUTROPHILS % (AUTO) 94.8 % (42.2-75.2); PLATELET COUNT (AUTO) 281 K/uL (140-450); RED BLOOD CELL COUNT(AUTO) 5.14 MIL/uL (4.20-6.10); RED CELL DISTRIBUTION WIDTH 15.2 % (11.6-13.7); WHITE BLOOD COUNT (AUTO) 9.1 K/uL (4.8-10.8)
[2018-12-10 08:00] VITALS: BP 113/76
[2018-12-10 08:09] LABS: CARBON DIOXIDE 36.7 mmol/L (21-32); CREATININE 0.9 mg/dL (0.7-1.3); POTASSIUM 4.7 mmol/L (3.5-5.1)
[2018-12-10 08:30] LABS: MAGNESIUM 1.7 mg/dL (1.8-2.4); PHOSPHORUS 2.3 mg/dL (2.5-4.9)
[2018-12-10] MEDS: ASPIRIN 81 MG TAB.CHEW PO SCH (09:00)
[2018-12-10] MEDS: FUROSEMIDE 40 MG/4 ML VIAL IVP SCH (09:00)
[2018-12-10] MEDS: LISINOPRIL 10 MG TAB PO SCH (09:00)
[2018-12-10 12:00] VITALS: BP 122/80
[2018-12-10] MEDS ORDERED: SODIUM PHOS / POTASSIUM PHOS 1 PKT PDR PO SCH (12:40)
[2018-12-10] MEDS ORDERED: MAGNESIUM OXIDE 400 MG TAB PO SCH (12:40)
[2018-12-10 16:00] VITALS: BP 108/76
[2018-12-10] MEDS: traZODone 50 MG TAB PO SCH (21:08)
[2018-12-10 22:09] VITALS: BP 137/68
[2018-12-11] VITALS: BP 117/81
[2018-12-11] MEDS: NACL 0.9% 1,000 ML IV SCH (01:57)
[2018-12-11 04:00] VITALS: BP 120/83
[2018-12-11] MEDS: methylPREDNISolone SS 40 MG/ML VIAL IVP SCH ×3 (04:26→20:41)
[2018-12-11] MEDS: PIPERACILLIN/TAZOBACTAM 2.25 GM in DEXTROSE 5% 50 ML IV SCH ×3 (04:26→20:40)
[2018-12-11] MEDS: HYDROcodone/APAP 5/325 MG 1 TAB TAB PO PRN (05:03)
[2018-12-11] MEDS: ALBUTEROL SULFATE/IPRATROPIU 3 ML SOL IH SCH ×3 (07:02→19:50)
[2018-12-11] MEDS: BUDESONIDE 0.5 MG/2 ML NEBU INH SCH ×2 (07:02→19:50)
[2018-12-11 07:37] LABS: ANION GAP 4.3 (8-16); CREATININE 0.7 mg/dL (0.7-1.3); POTASSIUM 4.3 mmol/L (3.5-5.1)
[2018-12-11 07:50] LABS: BASOPHILS % (AUTO) 0.2 % (0.0-2.0); HEMATOCRIT 38.6 % (36-52); HEMOGLOBIN 12.1 g/dL (12.0-18.0); LYMPHOCYTES # (AUTO) 0.2 K/uL (2.0-11.5); LYMPHOCYTES % (AUTO) 2.4 % (20.5-51.1); MEAN CORPUSCULAR HEMOGLOBIN 25 pg (27-31); MEAN CORPUSCULAR HGB CONC 32 g/dL (33-37); MEAN CORPUSCULAR VOLUME 78.6 fL (80-94); MONOCYTES # (AUTO) 0.2 K/uL (0.8-1.0); NEUTROPHILS # (AUTO) 9.7 K/uL (1.8-7.7); NEUTROPHILS % (AUTO) 95.4 % (42.2-75.2); PLATELET COUNT (AUTO) 290 K/uL (140-450); RED BLOOD CELL COUNT(AUTO) 4.91 MIL/uL (4.20-6.10); WHITE BLOOD COUNT (AUTO) 10.2 K/uL (4.8-10.8)
[2018-12-11 07:55] LABS: MAGNESIUM 1.6 mg/dL (1.8-2.4); PHOSPHORUS 2.3 mg/dL (2.5-4.9)
[2018-12-11 08:00] VITALS: BP 120/75
[2018-12-11] MEDS ORDERED: MAGNESIUM OXIDE 400 MG TAB PO SCH (08:45)
[2018-12-11] MEDS ORDERED: SODIUM PHOS / POTASSIUM PHOS 1 PKT PDR PO SCH (08:45)
[2018-12-11] MEDS: LISINOPRIL 10 MG TAB PO SCH (09:00)
[2018-12-11] MEDS: GABAPENTIN 100 MG CAP PO SCH (09:29)
[2018-12-11] MEDS: ASPIRIN 81 MG TAB.CHEW PO SCH (09:29)
[2018-12-11] MEDS: FUROSEMIDE 40 MG/4 ML VIAL IVP SCH (09:33)
[2018-12-11] MEDS: ONDANSETRON 4 MG/2 ML VIAL IM/IVP PRN (10:59)
[2018-12-11 12:00] VITALS: BP 113/85
[2018-12-11 16:00] VITALS: BP 104/70
[2018-12-11] MEDS: DEXT 5% / NACL 0.9% 500 ML IV SCH (17:54)
[2018-12-11 20:00] VITALS: BP 106/76
[2018-12-11] MEDS: traZODone 50 MG TAB PO SCH (20:39)
[2018-12-11] MEDS: MIRTAZAPINE 15 MG TAB PO SCH (20:39)
[2018-12-12] VITALS: BP 129/88
[2018-12-12 04:00] VITALS: BP 126/90
[2018-12-12] MEDS: methylPREDNISolone SS 40 MG/ML VIAL IVP SCH ×3 (05:01→22:16)
[2018-12-12] MEDS: PIPERACILLIN/TAZOBACTAM 2.25 GM in DEXTROSE 5% 50 ML IV SCH ×2 (05:01→12:14)
[2018-12-12] MEDS: ALBUTEROL SULFATE/IPRATROPIU 3 ML SOL IH SCH ×3 (07:02→20:08)
[2018-12-12] MEDS: BUDESONIDE 0.5 MG/2 ML NEBU INH SCH ×2 (07:02→20:08)
[2018-12-12 08:00] VITALS: BP 116/81
[2018-12-12 08:32] LABS: HEMATOCRIT 42.1 % (36-52); HEMOGLOBIN 13.1 g/dL (12.0-18.0); LYMPHOCYTES # (AUTO) 0.3 K/uL (2.0-11.5); LYMPHOCYTES % (AUTO) 2.7 % (20.5-51.1); MEAN CORPUSCULAR HEMOGLOBIN 25 pg (27-31); MEAN CORPUSCULAR HGB CONC 31 g/dL (33-37); MEAN CORPUSCULAR VOLUME 79.7 fL (80-94); MONOCYTES # (AUTO) 0.2 K/uL (0.8-1.0); MONOCYTES % (AUTO) 2.3 % (1.7-9.3); NEUTROPHILS # (AUTO) 9.6 K/uL (1.8-7.7); PLATELET COUNT (AUTO) 312 K/uL (140-450); RED BLOOD CELL COUNT(AUTO) 5.28 MIL/uL (4.20-6.10); RED CELL DISTRIBUTION WIDTH 15.3 % (11.6-13.7); WHITE BLOOD COUNT (AUTO) 10.1 K/uL (4.8-10.8)
[2018-12-12 08:47] LABS: ANION GAP 5.4 (8-16); CREATININE 0.8 mg/dL (0.7-1.3); MAGNESIUM 1.8 mg/dL (1.8-2.4); PHOSPHORUS 2.5 mg/dL (2.5-4.9); POTASSIUM 3.8 mmol/L (3.5-5.1)
[2018-12-12 08:49] LABS: CARBON DIOXIDE 41.4 mmol/L (21-32)
[2018-12-12] MEDS: FUROSEMIDE 40 MG/4 ML VIAL IVP SCH (09:00)
[2018-12-12] MEDS ORDERED: LISINOPRIL 5 MG TAB PO SCH ×2 (09:22→09:30)
[2018-12-12] MEDS: ASPIRIN 81 MG TAB.CHEW PO SCH (09:34)
[2018-12-12] MEDS: GABAPENTIN 100 MG CAP PO SCH (09:34)
[2018-12-12 12:00] VITALS: BP 132/78
[2018-12-12] MEDS: ONDANSETRON 4 MG/2 ML VIAL IM/IVP PRN (12:13)
[2018-12-12] MEDS: HYDROcodone/APAP 5/325 MG 1 TAB TAB PO PRN (12:14)
[2018-12-12] MEDS: MORPHINE SULFATE 2 MG/ML SYR IVP PRN (14:38)
[2018-12-12 16:00] VITALS: BP 76/50
[2018-12-12] MEDS ORDERED: NACL 0.9% 500 ML IV SCH ×2 (17:05→18:20)
[2018-12-12] MEDS: DEXT 5% / NACL 0.9% 500 ML IV SCH (17:40)
[2018-12-12 18:36] LABS: BASOPHILS % (AUTO) 0.1 % (0.0-2.0); HEMOGLOBIN 11.3 g/dL (12.0-18.0); LYMPHOCYTES # (AUTO) 0.3 K/uL (2.0-11.5); LYMPHOCYTES % (AUTO) 2.2 % (20.5-51.1); MEAN CORPUSCULAR HEMOGLOBIN 24 pg (27-31); MEAN CORPUSCULAR HGB CONC 31 g/dL (33-37); MEAN CORPUSCULAR VOLUME 79.9 fL (80-94); MONOCYTES # (AUTO) 0.5 K/uL (0.8-1.0); MONOCYTES % (AUTO) 3.3 % (1.7-9.3); NEUTROPHILS # (AUTO) 13.9 K/uL (1.8-7.7); NEUTROPHILS % (AUTO) 94.4 % (42.2-75.2); PLATELET COUNT (AUTO) 283 K/uL (140-450); RED BLOOD CELL COUNT(AUTO) 4.63 MIL/uL (4.20-6.10); RED CELL DISTRIBUTION WIDTH 14.7 % (11.6-13.7); WHITE BLOOD COUNT (AUTO) 14.7 K/uL (4.8-10.8)
[2018-12-12 18:57] LABS: ANION GAP 4.1 (8-16); POTASSIUM 3.2 mmol/L (3.5-5.1)
[2018-12-12 19:01] LABS: CARBON DIOXIDE 43.1 mmol/L (21-32)
[2018-12-12 19:15] VITALS: BP 78/48
[2018-12-12] MEDS ORDERED: NACL 0.9% 1,000 ML IV ONE (19:35)
[2018-12-12] MEDS ORDERED: PIPERACILLIN/TAZOBACTAM 2.25 GM in DEXTROSE 5% 50 ML IV SCH (21:00)
[2018-12-12] MEDS ORDERED: POTASSIUM CHLORIDE 10 MEQ TABER PO SCH (22:00)
[2018-12-12] MEDS: MIRTAZAPINE 15 MG TAB PO SCH (22:18)
[2018-12-12] MEDS: traZODone 50 MG TAB PO SCH (22:19)
[2018-12-12] MEDS ORDERED: cefTRIAXone 1,000 MG VIAL ONE (22:27)
[2018-12-13] VITALS (7 sets, daily range): BP systolic 91–135; BP diastolic 55–85
[2018-12-13] MEDS: ALBUTEROL SULFATE/IPRATROPIU 3 ML SOL IH SCH ×3 (06:38→20:21)
[2018-12-13] MEDS: BUDESONIDE 0.5 MG/2 ML NEBU INH SCH ×2 (06:46→20:21)
[2018-12-13] MEDS: methylPREDNISolone SS 40 MG/ML VIAL IVP SCH ×3 (06:48→20:37)
[2018-12-13] MEDS ORDERED: LISINOPRIL 5 MG TAB PO SCH (09:00)
[2018-12-13] MEDS: FUROSEMIDE 40 MG/4 ML VIAL IVP SCH (09:29)
[2018-12-13] MEDS: ASPIRIN 81 MG TAB.CHEW PO SCH (09:30)
[2018-12-13] MEDS: GABAPENTIN 100 MG CAP PO SCH (09:30)
[2018-12-13] MEDS: MORPHINE SULFATE 2 MG/ML SYR IVP PRN (13:45)
[2018-12-13] MEDS ORDERED: METH4TAB1 PO (17:01)
[2018-12-13] MEDS ORDERED: LEVO750T2 PO (17:01)
[2018-12-13] MEDS ORDERED: LACT-81 PO (17:01)
[2018-12-13] MEDS: DEXT 5% / NACL 0.9% 500 ML IV SCH (17:40)
[2018-12-13 18:47] LABS: HEMATOCRIT 38.6 % (36-52); HEMOGLOBIN 11.9 g/dL (12.0-18.0); MEAN CORPUSCULAR HEMOGLOBIN 25 pg (27-31); MEAN CORPUSCULAR HGB CONC 31 g/dL (33-37); MEAN CORPUSCULAR VOLUME 79.9 fL (80-94); PLATELET COUNT (AUTO) 252 K/uL (140-450); RED BLOOD CELL COUNT(AUTO) 4.83 MIL/uL (4.20-6.10); RED CELL DISTRIBUTION WIDTH 15.4 % (11.6-13.7); WHITE BLOOD COUNT (AUTO) 13.6 K/uL (4.8-10.8)
[2018-12-13 19:12] LABS: BASOPHILS % (MANUAL) 0 % (0-2); EOSINOPHILS % (MANUAL) 0 % (0-4); LYMPHOCYTES % (MANUAL) 1 % (20-46); MONOCYTES % (MANUAL) 2 % (5-12)
[2018-12-13 19:20] LABS: ANION GAP 8.1 (8-16); CARBON DIOXIDE 39.2 mmol/L (21-32); CREATININE 0.6 mg/dL (0.7-1.3); POTASSIUM 4.3 mmol/L (3.5-5.1); TOTAL BILIRUBIN 0.4 mg/dL (0.0-1.0)
[2018-12-13] MEDS: MIRTAZAPINE 15 MG TAB PO SCH (20:38)
[2018-12-13] MEDS: traZODone 50 MG TAB PO SCH (20:38)
== END 2018-12-13 22:15 | disposition home or self-care (01) | DRG 871 ==
LOC: MED 21:01 → MTU 12-09 02:01
PROVIDERS: ADMIT General Practice; ATTEND General Practice
PROC: 05HY33Z Insertion of Infusion Device into Upper Vein, Percutaneous Approach (ICD-10-PCS; principal; 2018-12-09)
PROC: B54MZZA Ultrasonography of Right Upper Extremity Veins, Guidance (ICD-10-PCS; 2018-12-09)
PROC: 5A09357 Assistance with Respiratory Ventilation, Less than 24 Consecutive Hours, Continuous Positive Airway Pressure (ICD-10-PCS; 2018-12-09)
DX: A41.9 Sepsis, unspecified organism (principal); J96.01 Acute respiratory failure with hypoxia; I21.A1 Myocardial infarction type 2; E43 Unspecified severe protein-calorie malnutrition; J69.0 Pneumonitis due to inhalation of food and vomit; I50.43 Acute on chronic combined systolic (congestive) and diastolic (congestive) heart failure; J44.1 Chronic obstructive pulmonary disease with (acute) exacerbation; Z68.1 Body mass index [BMI] 19.9 or less, adult; E87.1 Hypo-osmolality and hyponatremia; R65.10 Systemic inflammatory response syndrome (SIRS) of non-infectious origin without acute organ dysfunction; D72.829 Elevated white blood cell count, unspecified; E11.9 Type 2 diabetes mellitus without complications; E87.6 Hypokalemia; I25.10 Atherosclerotic heart disease of native coronary artery without angina pectoris; K80.20 Calculus of gallbladder without cholecystitis without obstruction; N20.0 Calculus of kidney; F11.90 Opioid use, unspecified, uncomplicated; F17.210 Nicotine dependence, cigarettes, uncomplicated; G98.8 Other disorders of nervous system; E83.42 Hypomagnesemia; F19.10 Other psychoactive substance abuse, uncomplicated; E83.39 Other disorders of phosphorus metabolism
CPT/HCPCS: 36415; 70450; 71045; 71250; 76705; 80048; 80053; 80305; 81003; 82140; 82150; 82948; 83036; 83605; 83690; 83735; 83880; 84100; 84436; 84443; 84484; 85025; 85379; 85610; 85651; 85730; 86140; 87040; 87070; 87081; 87086; 87186; 87205; 93005; 94640; 97116; 97161-GP; 97530; 99285; C1751; J0696; J1644; J1940; J1956; J2270; J2405; J2543; J2920; J2930; J7030; J7060; J7613; J7620; J7626; Q0092